=== PATIENT | female | born 1945 | race Caucasian/White ===

== ENCOUNTER → 2018-01-21 | Outpatient (CLI) | payer MEDICARE, OTHER ==
[~2018-01-21] MED LIST: CELEBREX 200MG200 MG PO; CLARITIN 1010 MG/TAB PO; COMBIVENT INH14.7 GM IH; HYZAAR 50-12.1 UDTAB; LEVAQUIN 5500 MG/TA1 PO; LIPITOR20 MG PO; NEURONTIN300 MG/CAP PO; NORVASC 5MG5 MG/TAB PO; SYNTHROID0.05 MG/TA PO
== END ==
LOC: COL.RAD 06:58
DX: R14.2 Eructation (principal); R11.2 Nausea with vomiting, unspecified; R19.7 Diarrhea, unspecified
CPT/HCPCS: A9541

== ENCOUNTER 2018-02-13 07:16 | Emergency (ER) | payer MEDICARE, OTHER ==
[~2018-02-13] VITALS: Ht 154.9 cm; Wt 63.6 kg
[~2018-02-13 07:16] MED LIST changes: +LIPITOR 40MG TA40 MG PO; -LIPITOR20 MG PO
[2018-02-13 07:20] VITALS: TEMP 98.2
[2018-02-13 08:00] LABS: BASO % 0.3 % (0.0-2.0); EOS % 0.1 % (0-4.0); GRAN # 7.2 (1.4-6.5); GRAN % 74.7 % (42.2-75.2); HEMATOCRIT 39.7 % (37.0-47.0); LYMPH # 1.5 (1.2-3.4); LYMPH % 15.3 % (20.0-51.0); MEAN CELL VOLUME 90 fl (80.0-100.0); MEAN CORPUSCULAR HEMOGLOBIN 30 pg (27.0-31.0); MEAN CORPUSCULAR HGB CONC 33 g/dl (33.0-37.0); MEAN PLATELET VOLUME 10.1 fl (7.4-10.4); MONO # 0.8 (0.1-0.6); MONO % 8.5 % (1.7-9.3); PLATELET COUNT 215 K/mm3 (130-400); RED BLOOD COUNT 4.39 M/mm3 (4.10-5.30); REDCELL DISTRIBUTION WIDTH-CV 15.3 % (11.5-14.5)
[2018-02-13 08:08] LABS: COLLECTION METHOD CLEAN CATCH
[2018-02-13 08:12] LABS: ALBUMIN 3.9 gm/dL (3.5-5.0); BILIRUBIN,TOTAL 1.4 mg/dL (0.0-1.0); C-REACTIVE PROTEIN 1.4 mg/dL (0.0-0.9); CALCIUM 9.7 mg/dL (8.4-10.2); CREATININE, serum 0.89 mg/dL (0.52-1.25); POTASSIUM 3.4 mmol/L (3.4-5.0); TOTAL PROTEIN 7.1 gm/dL (6.4-8.2)
[2018-02-13 08:20] LABS: MUCOUS Present /lpf; PH 6 (5-8); SQUAMOUS EPITHELIAL 0-2 /hpf; URINE APPEARANCE Clear; URINE BACTERIA None Seen /hpf; URINE BILIRUBIN Negative (NEGATIVE); URINE BLOOD Negative (NEGATIVE); URINE COLOR Amber; URINE GLUCOSE Negative (NEGATIVE); URINE KETONE Trace (NEGATIVE); URINE LEUKOCYTE ESTERASE Negative (NEGATIVE); URINE NITRATE Negative (NEGATIVE); URINE PROTEIN(semi-quant) 3+ (NEGATIVE); URINE UROBILINOGEN >=4.0 mg/dL (NEGATIVE)
[2018-02-13 08:21] LABS: ERYTHROCYTE SEDIMENTATION RATE 19 mm/hr (0-30)
[2018-02-13] MEDS ORDERED: MASON NATURAL2000 IU (08:40)
[2018-02-13] MEDS ORDERED: COZAAR 50MG50 MG/TAB PO (08:41)
[2018-02-13] MEDS ORDERED: PRIL40 PO (08:41)
[2018-02-13] MEDS ORDERED: LASIX 20MG TABL20 MG PO (08:42)
[2018-02-13 10:07] VITALS: BP 164/90; PULSE 100
== END 2018-02-13 10:05 | disposition short-term general hospital (02) ==
LOC: COL.ER 07:16
PROVIDERS: Family Medicine
DX: C34.11 Malignant neoplasm of upper lobe, right bronchus or lung (principal); C78.7 Secondary malignant neoplasm of liver and intrahepatic bile duct; J44.9 Chronic obstructive pulmonary disease, unspecified; F17.210 Nicotine dependence, cigarettes, uncomplicated
CPT/HCPCS: J7030; Q9967